=== PATIENT | female | born 1960 ===

== ENCOUNTER 2017-02-23 21:31 | Emergency (ER) | payer OTHER ==
[2017-02-23 21:42] VITALS: RESP 16
[2017-02-23] MEDS ORDERED: Iohexol 240 (50 ml) ONE (22:50)
[2017-02-23] MEDS ORDERED: DiphenhydrAMINE 50 mg/ml Inj ONE (22:50)
[2017-02-23 23:01] LABS: BASO # 0.1 K/uL (0.0-0.2); BASO % 0.5 % (0.0-2.0); EOS # 0.1 K/uL (0.0-0.7); HEMATOCRIT 40.6 % (34.0-47.0); LYMPH # 2.9 K/uL (1.0-4.3); LYMPH % 20.9 % (20.0-40.0); MEAN CELL VOLUME 89.2 fl (81.0-99.0); MEAN CORPUSCULAR HEMOGLOBIN 29.1 pg (27.0-31.0); MEAN CORPUSCULAR HGB CONC 32.6 g/dL (33.0-37.0); MEAN PLATELET VOLUME 8.2 fl (7.2-11.7); MONO # 0.9 K/uL (0.0-0.8); MONO % 6.5 % (0.0-10.0); NEUT # 9.9 K/uL (1.8-7.0); NEUT % 71.1 % (50.0-75.0); NRBC % 0.1 % (0.0-0.0); RED CELL DISTRIBUTION WIDTH 13.5 % (11.5-14.5); WHITE BLOOD COUNT 13.9 K/uL (4.8-10.8)
[2017-02-23] MEDS: Iohexol 240 (50 ml) PO ONE (23:12)
[2017-02-23] MEDS: DiphenhydrAMINE 50 mg/ml Inj IV STA (23:13)
[2017-02-23] MEDS: Promethazine 25MG/50ML NS IVPB STA (23:13)
[2017-02-23] MEDS: Sodium Chloride 0.9% 1,000 ML IV STA (23:18)
[2017-02-23 23:24] LABS: ALB/GLOB RATIO 1.5 (1.0-2.1); ALKALINE PHOSPHATASE 56 U/L (38-126); ALT/SGPT 43 U/L (9-52); AST/SGOT 26 U/L (14-36); BILIRUBIN,TOTAL 0.5 mg/dl (0.2-1.3); BLOOD UREA NITROGEN 19 mg/dl (7-17); CALCIUM 9.7 mg/dL (8.4-10.2); CARBON DIOXIDE 27 mmol/L (22-30); CHLORIDE 103 mmol/L (98-107); GFR AFRICAN-AMERICAN > 60; GLUCOSE,RANDOM 112 mg/dL (65-105); POTASSIUM 3.8 MMOL/L (3.6-5.0); SODIUM 141 mmol/l (132-148); TOTAL PROTEIN 7.7 G/DL (6.3-8.2)
--- NOTE | 2017-02-23 23:24 | CT ---
EXAM: CT Head Without Intravenous Contrast CLINICAL HISTORY: 56 years old, female; Pain and signs and symptoms; Dizziness and other: Nausea; Headache; Headache not specified; Patient HX: Hypertensive TECHNIQUE: Axial computed tomography images of the head/brain without intravenous contrast. This CT exam was performed using one or more of the following dose reduction techniques: automated exposure control, adjustment of the mA and/or kV according to patient size, and/or use of iterative reconstruction technique. Coronal and sagittal reformatted images were created and reviewed. COMPARISON: No relevant prior studies available. FINDINGS: Brain: No intracranial hemorrhage. No mass. No definite edema. Ventricles: No hydrocephalus. Bones/joints: No acute fracture. Soft tissues: Unremarkable. Sinuses: No acute sinusitis. Mastoid air cells: No mastoid effusion. Orbits: Unremarkable as visualized. IMPRESSION: 1. No acute intracranial abnormality. 2. Incidental/non-acute findings are described above.
[2017-02-23 23:27] LABS: PARTIAL THROMBOPLASTIN TIME 23.6 SECONDS (23.3-32.5)
--- NOTE | 2017-02-23 23:35 | ED PDOC ---
HPI: Hypertension/Hypotension Time Seen by Provider: 02/23/17 22:05 Chief Complaint (Nursing): High Blood Pressure Past Medical History Vital Signs: Last Vital Signs Temp 98.0 F 02/23/17 21:39 Pulse 79 02/23/17 21:39 Resp 16 02/23/17 21:39 BP 157/108 H 02/23/17 21:39 Pulse Ox 100 02/23/17 21:39 - Allergies Allergies/Adverse Reactions: Allergies Allergy/AdvReac Type Severity Reaction Status Date / Time No Known Allergies Allergy Verified 02/23/17 21:39 - Laboratory Results Result Diagrams: 02/23/17 22:37 02/23/17 22:37 - ECG O2 Sat by Pulse Oximetry: 100
--- NOTE | 2017-02-23 23:40 | ED PDOC ---
HPI: General Adult Time Seen by Provider: 02/23/17 22:05 Chief Complaint (Nursing): High Blood Pressure Chief Complaint (Provider): headache, nausea, abdominal pain History Per: Patient History/Exam Limitations: no limitations Onset/Duration Of Symptoms: Days Have you had recent travel within the past 21 days to any of the following countries: [place], [place], [place] or [place]?: No Current Symptoms Are (Timing): Still Present Additional Complaint(s): 56yo female with PMHx including colon CA s/p partial colectomy 1 year ago with completion of chemotherapy presents to the ED with c/o headache, nausea, and abdominal pain. Patient reports weekly headaches (2-3x per week) that began escalating yesterday. Further reports constipation 2 days ago with abdominal pain. States she has had nausea with vomiting x1. Denies fever, neck pain, chest pain, SOB. Patient has not taken any meds for headache because of abdominal pain and constipation. Past Medical History Reviewed: Historical Data, Nursing Documentation, Vital Signs Vital Signs: Last Vital Signs Temp 98.0 F 02/23/17 21:39 Pulse 79 02/23/17 21:39 Resp 16 02/23/17 21:39 BP 157/108 H 02/23/17 21:39 Pulse Ox 100 02/24/17 02:18 - Medical History PMH: Malignancy (colon CA ) - Surgical History Other surgeries: partial colectomy - Family History Family History: States: No Known Family Hx - Social History Current smoker - smoking cessation education provided: No Alcohol: None Drugs: Denies - Home Medications Home Medications: Ambulatory Orders Medication Instructions Recorded Ciprofloxacin [Cipro] 500 mg PO Q12 #14 tab 02/24/17 Tamsulosin [Flomax] 0.4 mg PO DAILY #10 cap 02/24/17 traMADol [Ultram] 50 mg PO Q6 PRN #12 tab 02/24/17 - Allergies Allergies/Adverse Reactions: Allergies Allergy/AdvReac Type Severity Reaction Status Date / Time No Known Allergies Allergy Verified 02/23/17 21:39 Review of Systems ROS Statement: Except As Marked, All Systems Reviewed And Found Negative Constitutional: Negative for: Fever Cardiovascular: Negative for: Chest Pain Respiratory: Negative for: Shortness of Breath Gastrointestinal: Positive for: Nausea, Vomiting, Abdominal Pain, Constipation Musculoskeletal: Negative for: Neck Pain Neurological: Positive for: Headache Physical Exam - Reviewed Nursing Documentation Reviewed: Yes Vital Signs Reviewed: Yes - Physical Exam Appears: Positive for: Well, No Acute Distress, Uncomfortable Head Exam: Positive for: ATRAUMATIC, NORMAL INSPECTION, NORMOCEPHALIC Skin: Positive for: Normal Color, Warm, Dry Eye Exam: Positive for: Normal appearance, EOMI, PERRL ENT: Positive for: Other (dry mucous membranes ). Negative for: Pharyngeal Erythema, Tonsillar Exudate, Tonsillar Swelling Neck: Positive for: Normal, Painless ROM, Supple Cardiovascular/Chest: Positive for: Regular Rate, Rhythm. Negative for: Murmur , Tachycardia Respiratory: Positive for: Normal Breath Sounds. Negative for: Wheezing, Respiratory Distress Gastrointestinal/Abdominal: Positive for: Soft, Tenderness (diffuse ). Negative for: Guarding, Rebound Back: Positive for: Normal Inspection. Negative for: L CVA Tenderness, R CVA Tenderness Extremity: Positive for: Normal ROM. Negative for: Deformity, Swelling Neurologic/Psych: Positive for: Alert, Oriented. Negative for: Motor/Sensory Deficits - Laboratory Results Result Diagrams: 02/23/17 22:37 02/23/17 22:37 - ECG O2 Sat by Pulse Oximetry: 100 Pulse Ox Interpretation: Normal (RA) Medical Decision Making Medical Decision Makin: Impression: 56yo female w/ headache, abdominal pain w/ hx of colon CA and partial colectomy Plan: CT A/P and head Labs EKG Benadryl 25mg IV, Phenergan 25mg IVPB, IVF reassess 2324: CT head impression: 1. No acute intracranial abnormality. 0216: CT A/P impression: 1. LEFT proximal ureteral calculus with moderate hydronephrosis. 0234: Labs reviewed, no clinically significant abnormalities with exception of urine being indicative of UTI. Patient reports marked improvement in her pain and symptoms and is stable for d/c. Dx: ureteral calculus, headache Patient has a urologist that she will follow-up with (Dr. Cr) Rx: flomax, cipro, tramadol Scribe Attestation: Documented by Lilian Johnston acting as a scribe for Soren Milian MD. Provider Scribe Attestation: All medical record entries made by the Scribe were at my direction and personally dictated by me. I have reviewed the chart and agree that the record accurately reflects my personal performance of the history, physical exam, medical decision making, and the department course for this patient. I have also personally directed, reviewed, and agree with the discharge instructions and disposition. Disposition - Clinical Impression Clinical Impression: Ureteral calculus, Headache - Patient ED Disposition Is Patient to be Admitted: No Counseled Patient/Family Regarding: Studies Performed, Diagnosis, Need For Followup, Rx Given - Disposition Disposition: Routine/Home Disposition Time: 02:34 Condition: IMPROVED Prescriptions: Ciprofloxacin [Cipro] 500 mg PO Q12 #14 tab Tamsulosin [Flomax] 0.4 mg PO DAILY #10 cap traMADol [Ultram] 50 mg PO Q6 PRN #12 tab PRN Reason: flank pain/abdominal pain Instructions: Ureteral Stones (ED) Print Language: DANISH
[2017-02-24 00:37] LABS: RBC URINE 4 /hpf (0-3); URINE BILIRUBIN NEGATIVE (NEGATIVE); URINE BLOOD NEGATIVE (NEGATIVE); URINE COLOR YELLOW (YELLOW); URINE GLUCOSE (UA) NEG (Normal); URINE KETONE NEGATIVE (NEGATIVE); URINE LEUKOCYTE ESTERASE TRACE Leu/uL (Negative); URINE PROTEIN 30 mg/dL (NEGATIVE); URINE UROBILINOGEN 0.2-1.0 mg/dL (0.2-1.0); WBC URINE 11 /hpf (0-5)
[2017-02-24] MEDS ORDERED: Iohexol 300 100 ML IJ ONE (01:21)
[2017-02-24] MEDS ORDERED: Sodium Chloride 0.9% 50 ML IV ONE (01:21)
--- NOTE | 2017-02-24 02:16 | CT ---
EXAM: CT Abdomen and Pelvis With Intravenous Contrast CLINICAL HISTORY: 56 years old, female; Pain; Abdominal pain; Generalized; Prior surgery; Surgery date: 6+ months; Surgery type: Colon ca colectomy; Patient HX: Chart included; Additional info: Abd pain TECHNIQUE: Axial computed tomography images of the abdomen and pelvis with intravenous contrast. This CT exam was performed using one or more of the following dose reduction techniques: automated exposure control, adjustment of the mA and/or kV according to patient size, and/or use of iterative reconstruction technique. Coronal and sagittal reformatted images were created and reviewed. CONTRAST: 95 mL of [id number] administered intravenously. COMPARISON: No relevant prior studies available. FINDINGS: Lower thorax: Mild cardiomegaly. ABDOMEN: Liver: Small hepatic calcification. Gallbladder and bile ducts: Gallstone. No ductal dilation. Pancreas: No ductal dilation. No mass. Spleen: No splenomegaly. Adrenals: No mass. Kidneys and ureters: Slightly delayed enhancement/excretion of RIGHT kidney. Moderate pelvocaliectasis of LEFT kidney. 1.5 x 0.8 x 1.0 cm calculus within LEFT proximal ureter. 0.3 x 0.2 x 0.3 cm calculus within LEFT distal ureter. Stomach and bowel: Postsurgical changes of sigmoid colon. Few scattered diverticula within colon. No associated inflammatory stranding. No definite mural thickening. No obstruction. Appendix: Normal caliber. No inflammation. PELVIS: Bladder: Unremarkable. Reproductive: Small peripherally calcified lesion within RIGHT ovary, nonspecific. ABDOMEN and PELVIS: Intraperitoneal space: No significant fluid collection. No free air. Bones/joints: No acute fracture. Soft tissues: Unremarkable. Vasculature: Unremarkable. No abdominal aortic aneurysm. Lymph nodes: No pathologically enlarged lymph nodes. IMPRESSION: 1. LEFT proximal ureteral calculus with moderate hydronephrosis. 2. Incidental/non-acute findings are described above.
[2017-02-24] MEDS ORDERED: cefTRIAXone (Rocephin) 1 gm Inj ONE (02:39)
[2017-02-24 03:56] VITALS: BP 126/81; PULSE 83; TEMP 98.2; O2SAT 98
--- NOTE | 2017-02-26 19:03 | CARD ---
APPROVED REPORT EKG Measurement Heart [id number] <Conclusion> Normal sinus rhythm with sinus arrhythmia Normal ECG
== END 2017-02-24 04:23 | disposition home or self-care (01) ==
LOC: H.ER 21:31
DX: N20.1 Calculus of ureter (principal); R51 Headache; K29.00 Acute gastritis without bleeding; R11.2 Nausea with vomiting, unspecified; C18.9 Malignant neoplasm of colon, unspecified; Z85.038 Personal history of other malignant neoplasm of large intestine; Z90.49 Acquired absence of other specified parts of digestive tract; Z98.890 Other specified postprocedural states